=== PATIENT | female | born 2000 | race Caucasian/White ===

== ENCOUNTER 2024-06-25 22:21 | Emergency (ER) | payer OTHER, SELFPAY ==
--- OUTSIDE RECORDS SUMMARY | 2024-06-25 22:24 | XMS_ITS | Continuity of Care Document ---
Author Organization [facility] Address [address] [place] [address] Phone Care Team Providers Care Overcoiler Name Role Phone Mohan Valadez MD Unavailable Unavailable Procedures Procedure Date Patient Optical Charge Offic/outpt E&m Estab Mod-hi 2 08 Offic/outpt E&m New Minor 10mi 08 Advance Directives Directive Yes / No Effective Date File Name No Information Encounters Encounter Description Practice Location Reason(s) For Visit Diagnoses Date Provider Providers Copied on Encounter [facility] , [address], [place], [id number], [place] tel:[phone] [facility] No Information Rory Preston. [address] [facility], [address], [place], [place], [id number], [place]. tel:[phone] [facility] , [address], [place], [id number], [place] tel:[phone] [facility] No Information No Information Offic/outpt E&m Estab Mod-hi 2 [facility] , [address], [place], [id number], [place] tel:[phone] [facility] No Information No Information Offic/outpt E&m New Minor 10mi [facility] , [address], [place], [id number], [place] tel:[phone] [facility] No Information No Information Referring Provider: Nina Moore MD, [address], [place], [address] . tel:[phone] Family History Family Member Type Diagnosis Age At Onset No Information Payers Payer name Insurance type Covered democrat ID Authoriza tion(s) No Information Social History Type Description Quantity Date Captured Comments Sex Female Smoking Status No Information Chief Complaint And Reason For Visit No Information Reason For Referral Reason For Referral No Information History Of Present Illness Encounter Date Complaint History Of Prese nt Illness No Information Functional Status Date Functional Assessmen t No Information Instructions Date Instruction Additional Infor mation No Information Assessments Type Assessment Date No Information Patient Care Teams Name Effective Dates (start - stop) Status Members No Information
[2024-06-25 22:26] VITALS: BP 122/74; PULSE 90; RESP 16; TEMP 36.7; O2SAT 98; BMI 19.1
--- NOTE | 2024-06-25 22:37 | ED.GENADULT ---
HPI - General Adult General Time Seen by Provider: 22:38 <Kallie Cooper MD - Last Filed: 06/26/24 18:46> Date Seen: 06/25/24 <Kallie Cooper MD - Last Filed: 06/26/24 18:46> Chief complaint: Unspecified Complaint, Adult <Kallie Cooper MD - Last Filed: 06/26/24 18:46> Stated complaint: poss carbon monoxide poisoning <Kallie Cooper MD - Last Filed: 06/26/24 18:46> Time Seen by Provider: 06/25/24 22:23 <Kallie Cooper MD - Last Filed: 06/26/24 18:46> Source: patient and RN notes reviewed <Kallie Cooper MD - Last Filed: 06/26/24 18:46> Mode of arrival: ambulatory <Kallie Cooper MD - Last Filed: 06/26/24 18:46> Limitations: no limitations <Kallie Cooper MD - Last Filed: 06/26/24 18:46> History of Present Illness HPI narrative: This 23yo female is coming into the ED with concerns of possible carbon monoxide exposure from an exhaust leak in the car. She was running errands with her boyfriend when all of this started to happen, from 7-9p tonight, when she started to feel hot, like a hot flash, felt trembly and shaky, hands were visibly shaking when trying to drink her beverage. Her ears both started ringing and her hearing was going in and out. She felt dizzy, confused for about 5 minutes, was stuttering attempting to talk, had a headache and chest pressure with this. She had some significant nasal congestion last week without fever, had post nasal drainage with secondary cough but no fever. Has noted some right ear pain for about 2 weeks intermittently. She is sexually active, last menstrual period was about 2 weeks ago; there is a chance for . She felt like it was just maybe her anxiety but did consider the exhaust, she then her rule down the window and started to breathe a air out the window. She does admit that they watched TV your program on the phone for 1/2 hour and also did smoke marijuana. Neither of them smoke cigarettes. She does have secondhand smoke exposure but not within the car while they were driving. She does feel better from all of these symptoms but her mom advised her to come in for evaluation. Her boyfriend is with her, he does admit that he had similar symptoms in the car but did not tell nursing staff this as he wanted to stay with his girlfriend. <Kallie Cooper MD - Last Filed: 06/26/24 18:46> Related Data Home medications: Home Medications ?Medication ?Instructions ?Recorded ?Confirmed No Known Home Medications 06/25/24 06/25/24 <Kallie Cooper MD - Last Filed: 06/26/24 18:46> Allergies/adverse reactions: Allergies Allergy/AdvReac Type Severity Reaction Status Date / Time amoxicillin Allergy hives Verified 06/25/24 22:32 [email or web address] (From Omnicef) AdvReac Vomiting Verified 06/25/24 22:32 <Kallie Cooper MD - Last Filed: 06/26/24 18:46> Review of Systems Status of ROS: Reports: 6 or more systems reviewed and unremarkable except as noted in History and below <Kallie Cooper MD - Last Filed: 06/26/24 18:46> [facility] Social History: Social History Smoking Status: Never smoker Do you use any of these nicotine containing products: Vaping Products How often do you have a drink containing alcohol: never AUDIT-C Alcohol total score: 0 Non-prescribed substance use: marijuana (any form) <Kallie Cooper MD - Last Filed: 06/26/24 18:46> Exam Const: Vital Signs, click to edit/add: Vital Signs - 24 hr 06/25/24 22:26 06/25/24 23:10 06/25/24 23:51 Temperature 98.0 F Pulse Rate 81 Pulse Rate [Left P ulse Oximeter] 90 Respiratory Rate 16 17 Blood Pressure 113/68 Blood Pressure [Ri ght Upper Arm] 122/74 Pulse Oximetry 98 100 Oxygen Delivery Me thod Room Air Non Rebreather Mas k Non Rebreather Mas k Oxygen Flow Rate 10 10 06/25/24 23:52 06/26/24 00:00 06/26/24 00:01 Temperature Pulse Rate 92 82 88 Pulse Rate [Left P ulse Oximeter] Respiratory Rate 25 H 20 20 Blood Pressure 117/75 Blood Pressure [Ri ght Upper Arm] Pulse Oximetry 100 100 100 Oxygen Delivery Me thod Non Rebreather Mas k Non Rebreather Mas k Non Rebreather Mas k Oxygen Flow Rate 10 10 06/26/24 00:01 06/26/24 00:01 06/26/24 00:15 Temperature Pulse Rate 88 88 90 Pulse Rate [Left P ulse Oximeter] Respiratory Rate 20 20 Blood Pressure 117/75 117/75 Blood Pressure [Ri ght Upper Arm] Pulse Oximetry 100 100 100 Oxygen Delivery Me thod Non Rebreather Mas k Non Rebreather Mas k Oxygen Flow Rate 10 06/26/24 00:30 06/26/24 00:32 06/26/24 00:45 Temperature Pulse Rate 78 79 Pulse Rate [Left P ulse Oximeter] Respiratory Rate 20 20 20 Blood Pressure 104/57 L Blood Pressure [Ri ght Upper Arm] Pulse Oximetry 100 100 Oxygen Delivery Me thod Non Rebreather Mas k Oxygen Flow Rate 10 06/26/24 01:00 06/26/24 01:01 06/26/24 01:01 Temperature Pulse Rate 80 77 77 Pulse Rate [Left P ulse Oximeter] Respiratory Rate 19 19 Blood Pressure 113/65 113/65 Blood Pressure [Ri ght Upper Arm] Pulse Oximetry 100 100 100 Oxygen Delivery Me thod Non Rebreather Mas k Non Rebreather Mas k Oxygen Flow Rate 10 06/26/24 01:01 06/26/24 01:15 06/26/24 01:30 Temperature Pulse Rate 77 71 73 Pulse Rate [Left P ulse Oximeter] Respiratory Rate 19 14 18 Blood Pressure 113/65 Blood Pressure [Ri ght Upper Arm] Pulse Oximetry 100 100 100 Oxygen Delivery Me thod Non Rebreather Mas k Oxygen Flow Rate 10 06/26/24 01:32 06/26/24 01:45 06/26/24 02:00 Temperature Pulse Rate 72 56 L 73 Pulse Rate [Left P ulse Oximeter] Respiratory Rate 12 18 17 Blood Pressure 103/59 L Blood Pressure [Ri ght Upper Arm] Pulse Oximetry 100 99 99 Oxygen Delivery Me thod Non Rebreather Mas k Oxygen Flow Rate 06/26/24 02:02 06/26/24 02:15 06/26/24 02:30 Temperature Pulse Rate 70 66 64 Pulse Rate [Left P ulse Oximeter] Respiratory Rate 20 20 15 Blood Pressure 99/50 L Blood Pressure [Ri ght Upper Arm] Pulse Oximetry 99 100 100 Oxygen Delivery Me thod Non Rebreather Mas k Oxygen Flow Rate 06/26/24 02:32 06/26/24 02:45 06/26/24 03:00 Temperature Pulse Rate 78 76 53 L Pulse Rate [Left P ulse Oximeter] Respiratory Rate 19 18 Blood Pressure 107/58 L Blood Pressure [Ri ght Upper Arm] Pulse Oximetry 100 100 99 Oxygen Delivery Me thod Non Rebreather Mas k Non Rebreather Mas k Oxygen Flow Rate 10 06/26/24 03:02 06/26/24 03:15 06/26/24 03:30 Temperature Pulse Rate 51 L 51 L 51 L Pulse Rate [Left P ulse Oximeter] Respiratory Rate 19 19 Blood Pressure 95/49 L Blood Pressure [Ri ght Upper Arm] Pulse Oximetry 100 99 100 Oxygen Delivery Me thod Oxygen Flow Rate 06/26/24 03:32 06/26/24 03:45 06/26/24 04:00 Temperature Pulse Rate 95 61 69 Pulse Rate [Left P ulse Oximeter] Respiratory Rate 14 18 20 Blood Pressure 92/73 Blood Pressure [Ri ght Upper Arm] Pulse Oximetry 100 100 100 Oxygen Delivery Me thod Non Rebreather Mas k Oxygen Flow Rate 06/26/24 04:02 06/26/24 04:15 06/26/24 04:30 Temperature Pulse Rate 61 52 L 53 L Pulse Rate [Left P ulse Oximeter] Respiratory Rate 17 17 18 Blood Pressure 93/55 L Blood Pressure [Ri ght Upper Arm] Pulse Oximetry 100 100 100 Oxygen Delivery Me thod Non Rebreather Mas k Oxygen Flow Rate 06/26/24 04:32 06/26/24 04:45 06/26/24 05:00 Temperature Pulse Rate 56 L 53 L 54 L Pulse Rate [Left P ulse Oximeter] Respiratory Rate 19 18 19 Blood Pressure 96/41 L Blood Pressure [Ri ght Upper Arm] Pulse Oximetry 100 100 100 Oxygen Delivery Me thod Oxygen Flow Rate 06/26/24 05:02 06/26/24 05:15 Temperature Pulse Rate 57 L 56 L Pulse Rate [Left P ulse Oximeter] Respiratory Rate 19 17 Blood Pressure 95/52 L Blood Pressure [Ri ght Upper Arm] Pulse Oximetry 100 100 Oxygen Delivery Me thod Non Rebreather Mas k Oxygen Flow Rate 10 This 23-year-old female is alert, interactive, no apparent distress. She is ambulatory into the ED of her own accord. She is very pleasant, tracking normally, speech is normal in cyst think. Pupils equal round reactive, sclera clear, TMs normal, no evidence of infection. She has no pre or postauricular adenopathy or masses. Oropharynx normal. Neck is supple, no adenopathy, no thyromegaly masses or nodules. Lungs are clear, good air entry, no wheezing or crackles, no tachypnea. Abdomen is soft, slender, nondistended, no masses. Strength is 5/5 and symmetric, no tremors or dysmetria at this time. Her gait was normal. <Kallie Cooper MD - Last Filed: 06/26/24 18:46> Vital Signs, click to edit/add: Vital Signs - 24 hr 06/25/24 22:26 06/25/24 23:10 06/25/24 23:51 Temperature 98.0 F Pulse Rate 81 Pulse Rate [Left P ulse Oximeter] 90 Respiratory Rate 16 17 Blood Pressure 113/68 Blood Pressure [Ri ght Upper Arm] 122/74 Pulse Oximetry 98 100 Oxygen Delivery Me thod Room Air Non Rebreather Mas k Non Rebreather Mas k Oxygen Flow Rate 10 06/25/24 23:52 06/26/24 00:00 06/26/24 00:01 Temperature Pulse Rate 92 82 88 Pulse Rate [Left P ulse Oximeter] Respiratory Rate 25 H 20 20 Blood Pressure 117/75 Blood Pressure [Ri ght Upper Arm] Pulse Oximetry 100 100 100 Oxygen Delivery Me thod Non Rebreather Mas k Non Rebreather Mas k Non Rebreather Mas k Oxygen Flow Rate 10 10 10 06/26/24 00:01 06/26/24 00:01 06/26/24 00:15 Temperature Pulse Rate 88 88 90 Pulse Rate [Left P ulse Oximeter] Respiratory Rate 20 20 Blood Pressure 117/75 117/75 Blood Pressure [Ri ght Upper Arm] Pulse Oximetry 100 100 100 Oxygen Delivery Me thod Non Rebreather Mas k Non Rebreather Mas k Oxygen Flow Rate 10 06/26/24 00:30 06/26/24 00:32 06/26/24 00:45 Temperature Pulse Rate 78 79 Pulse Rate [Left P ulse Oximeter] Respiratory Rate 20 20 20 Blood Pressure 104/57 L Blood Pressure [Ri ght Upper Arm] Pulse Oximetry 100 100 Oxygen Delivery Me thod Non Rebreather Mas k Oxygen Flow Rate 06/26/24 01:00 06/26/24 01:01 06/26/24 01:01 Temperature Pulse Rate 80 77 77 Pulse Rate [Left P ulse Oximeter] Respiratory Rate 19 19 Blood Pressure 113/65 113/65 Blood Pressure [Ri ght Upper Arm] Pulse Oximetry 100 100 100 Oxygen Delivery Me thod Non Rebreather Mas k Non Rebreather Mas k Oxygen Flow Rate 10 06/26/24 01:01 06/26/24 01:15 06/26/24 01:30 Temperature Pulse Rate 77 71 73 Pulse Rate [Left P ulse Oximeter] Respiratory Rate 19 14 18 Blood Pressure 113/65 Blood Pressure [Ri ght Upper Arm] Pulse Oximetry 100 100 100 Oxygen Delivery Me thod Non Rebreather Mas k Oxygen Flow Rate 06/26/24 01:32 06/26/24 01:45 06/26/24 02:00 Temperature Pulse Rate 72 56 L 73 Pulse Rate [Left P ulse Oximeter] Respiratory Rate 12 18 17 Blood Pressure 103/59 L Blood Pressure [Ri ght Upper Arm] Pulse Oximetry 100 99 99 Oxygen Delivery Me thod Non Rebreather Mas k Oxygen Flow Rate 06/26/24 02:02 06/26/24 02:15 06/26/24 02:30 Temperature Pulse Rate 70 66 64 Pulse Rate [Left P ulse Oximeter] Respiratory Rate 20 20 15 Blood Pressure 99/50 L Blood Pressure [Ri ght Upper Arm] Pulse Oximetry 99 100 100 Oxygen Delivery Me thod Non Rebreather Mas k Oxygen Flow Rate 06/26/24 02:32 06/26/24 02:45 06/26/24 03:00 Temperature Pulse Rate 78 76 53 L Pulse Rate [Left P ulse Oximeter] Respiratory Rate 19 18 Blood Pressure 107/58 L Blood Pressure [Ri ght Upper Arm] Pulse Oximetry 100 100 99 Oxygen Delivery Me thod Non Rebreather Mas k Non Rebreather Mas k Oxygen Flow Rate 10 10 06/26/24 03:02 06/26/24 03:15 06/26/24 03:30 Temperature Pulse Rate 51 L 51 L 51 L Pulse Rate [Left P ulse Oximeter] Respiratory Rate 19 19 Blood Pressure 95/49 L Blood Pressure [Ri ght Upper Arm] Pulse Oximetry 100 99 100 Oxygen Delivery Me thod Oxygen Flow Rate 06/26/24 03:32 06/26/24 03:45 06/26/24 04:00 Temperature Pulse Rate 95 61 69 Pulse Rate [Left P ulse Oximeter] Respiratory Rate 14 18 20 Blood Pressure 92/73 Blood Pressure [Ri ght Upper Arm] Pulse Oximetry 100 100 100 Oxygen Delivery Me thod Non Rebreather Mas k Oxygen Flow Rate 10 06/26/24 04:02 06/26/24 04:15 06/26/24 04:30 Temperature Pulse Rate 61 52 L 53 L Pulse Rate [Left P ulse Oximeter] Respiratory Rate 17 17 18 Blood Pressure 93/55 L Blood Pressure [Ri ght Upper Arm] Pulse Oximetry 100 100 100 Oxygen Delivery Me thod Non Rebreather Mas k Oxygen Flow Rate 10 06/26/24 04:32 06/26/24 04:45 06/26/24 05:00 Temperature Pulse Rate 56 L 53 L 54 L Pulse Rate [Left P ulse Oximeter] Respiratory Rate 19 18 19 Blood Pressure 96/41 L Blood Pressure [Ri ght Upper Arm] Pulse Oximetry 100 100 100 Oxygen Delivery Me thod Oxygen Flow Rate 06/26/24 05:02 06/26/24 05:15 Temperature Pulse Rate 57 L 56 L Pulse Rate [Left P ulse Oximeter] Respiratory Rate 19 17 Blood Pressure 95/52 L Blood Pressure [Ri ght Upper Arm] Pulse Oximetry 100 100 Oxygen Delivery Me thod Non Rebreather Mas k Oxygen Flow Rate 10 <Jameel Reddy MD - Last Filed: 06/26/24 05:28> Documenting provider has reviewed patient's vital signs: yes <Kallie Cooper MD - Last Filed: 06/26/24 18:46> Course Course ED Course: Reviewed with patient that we will get labs, we will check for carbon monoxide poisoning, that will come back pretty quickly. If elevated, will treat with oxygen and do appropriate monitoring and testing for carbon monoxide poisoning. I am doing baseline labs with comprehensive metabolic panel, CBC, will get point of care troponin given her chest symptoms as well as a test. I am also doing a venous blood gas. <Kallie Cooper MD - Last Filed: 06/26/24 18:46> Reevaluation(s) Time of Reevaluation #1: 23:07 <Kallie Cooper MD - Last Filed: 06/26/24 18:46> Reevaluation #1: Her carboxyhemoglobin level has come back at 24.2%. This is obviously quite elevated. She is put on 10 L non-rebreather oxygen. Have her on pulse oximetry and cardiac monitoring. Will obtain EKG. Need to ensure no arrhythmia. Her troponin is normal. She is still hemodynamically and neurologically intact. Her venous blood gas is normal. Awaiting other labs at this point. If patient does test positive for , will need to talk to [facility]. <Kallie Cooper MD - Last Filed: 06/26/24 18:46> Reevaluation #2: Signed out to Dr. Reddy at shift change-midnight. Dr. Ordoñez did recheck the patient. She was alert and oriented, no symptoms. Discussed plan of care with the patient and her boyfriend they are agreeable. Plan will be to recheck troponin at 4:00 a.m. and keep them both on 100% oxygen through non-rebreather for about 6 hours (anticipate they will finish oxygen therapy at about 5:00 a.m.). They are agreeable. <Jameel Reddy MD - Last Filed: 06/26/24 05:28> Reevaluation #3: Repeat troponin undetectable. Patient otherwise asymptomatic. Continuing oxygen therapy. Will continue until 6 hours of oxygen via non-rebreather. At that point as per sign-out by Dr. Gonzáles (after her discussion with the hyperbaric team at [facility]) patient is safe for discharge home. <Jameel Reddy MD - Last Filed: 06/26/24 05:28> Additional Reevaluation(s): Recheck-has completed 6 hours of oxygen therapy. Remains asymptomatic. Feels comfortable plan for discharge. <Jameel Reddy MD - Last Filed: 06/26/24 05:28> Consultations Consultation #1: Have spoken to medical cook [address] Simeon from [facility]. He states that they are going away from a levels as levels do not necessarily correlate with symptoms. They would do 6 hours of non-rebreather oxygen. If patient had syncope, ongoing cardiac symptoms, persistent neurologic deficits, consideration for hyperbaric chamber would be made and we should contact them back. He would repeat a troponin. <Kallie Cooper MD - Last Filed: 06/26/24 18:46> Time: 00:12 <Kallie Cooper MD - Last Filed: 06/26/24 18:46> Vital Signs Vital signs: Initial Vital Signs Temperature 98.0 F 06/25/24 22:26 Temperature Source Temporal Artery Scan 06/25/24 22:26 Pulse Rate 90 06/25/24 22:26 Respiratory Rate 16 06/25/24 22:26 Blood Pressure 122/74 06/25/24 22:26 Blood Pressure Mean 90 06/25/24 22:26 Blood Pressure Position Sitting 06/25/24 22:26 Pulse Oximetry 98 06/25/24 22:26 Oxygen Delivery Method Room Air 06/25/24 22:26 Vital Signs Temperature 98.0 F 06/25/24 22:26 Pulse Rate 90 06/25/24 22:26 Respiratory Rate 16 06/25/24 22:26 Blood Pressure 122/74 06/25/24 22:26 Pulse Oximetry 98 06/25/24 22:26 Oxygen Delivery Method Room Air 06/25/24 22:26 Temperature 98.0 F 06/25/24 22:26 Pulse Rate 56 L 06/26/24 05:15 Respiratory Rate 17 06/26/24 05:15 Blood Pressure 95/52 L 06/26/24 05:02 Pulse Oximetry 100 06/26/24 05:15 Oxygen Delivery Method Non Rebreather Mask 06/26/24 05:02 Oxygen Flow Rate 10 06/26/24 05:02 <Kallie Cooper MD - Last Filed: 06/26/24 18:46> Initial Vital Signs Temperature 98.0 F 06/25/24 22:26 Temperature Source Temporal Artery Scan 06/25/24 22:26 Pulse Rate 90 06/25/24 22:26 Respiratory Rate 16 06/25/24 22:26 Blood Pressure 122/74 06/25/24 22:26 Blood Pressure Mean 90 06/25/24 22:26 Blood Pressure Position Sitting 06/25/24 22:26 Pulse Oximetry 98 06/25/24 22:26 Oxygen Delivery Method Room Air 06/25/24 22:26 Vital Signs Temperature 98.0 F 06/25/24 22:26 Pulse Rate 90 06/25/24 22:26 Respiratory Rate 16 06/25/24 22:26 Blood Pressure 122/74 06/25/24 22:26 Pulse Oximetry 98 06/25/24 22:26 Oxygen Delivery Method Room Air 06/25/24 22:26 Temperature 98.0 F 06/25/24 22:26 Pulse Rate 56 L 06/26/24 05:15 Respiratory Rate 17 06/26/24 05:15 Blood Pressure 95/52 L 06/26/24 05:02 Pulse Oximetry 100 06/26/24 05:15 Oxygen Delivery Method Non Rebreather Mask 06/26/24 05:02 Oxygen Flow Rate 10 06/26/24 05:02 <Jameel Reddy MD - Last Filed: 06/26/24 05:28> Medical Decision Making Lab Data Lab results reviewed: Yes I reviewed the patient's lab results <Kallie Cooper MD - Last Filed: 06/26/24 18:46> Lab results narrative: Venous pH, anion gap normal, troponin normal. Patient is not . <Kallie Cooper MD - Last Filed: 06/26/24 18:46> Labs: Lab Results 06/25/24 06/25/24 06/25/24 Range/Units 22:38 22:50 23:00 WBC 9.69 (4.50-11.00) K/uL RBC 4.39 (4.00-5.20) m/uL Hgb 12.5 (12.0-16.0) gm/dL Hct 38.0 (33.0-51.0) % MCV 87 (80-100) fL MCH 29 (26-34) pg MCHC 33 (32-36) gm/dL RDW Coeff of Tiffany 12.1 (11.5-15.5) % Plt Count 275 (140-440) K/uL Neut % (Auto) 69.0 (42.0-72.0) % Lymph % (Auto) 20.0 (20-44) % [place] % (Auto) 8.5 (0.0-11.0) % Eos % (Auto) 1.4 (0.0-7.0) % Baso % (Auto) 0.4 (0.0-3.0) % Neut # (Auto) 6.68 (1.7-7.0) K/uL Lymph # (Auto) 1.94 (0.90-2.90) K/uL [place] # (Auto) 0.80 (0.00-0.90) K/UL Eos # (Auto) 0.14 (0.00-0.50) K/uL Baso # (Auto) 0.04 (0.00-0.30) K/uL Abs Immat Gran (auto) 0.07 (0.00-0.30) K/uL Imm/Tot Granulo (auto) 0.7 % VBG pH 7.392 (7.32-7.43) VBG pCO2 44 (40-50) mmHG VBG pO2 < 30.1 (25-47) mmHG VBG HCO3 27 (21-28) mmol/L Carboxyhemoglobin 24.2 H* (0.0-5.0) % Sodium 137 (135-149) mmol/L Potassium 3.9 (3.6-5.1) mmol/L Chloride 104 (96-114) mmol/L Carbon Dioxide 24 (20-32) mmol/L Anion Gap 9 (7-15) mEq/L BUN 16 (5-24) mg/dL Creatinine 0.6 (0.5-1.5) mg/dL Estimated Creat Clear 116.90 Estimated GFR 130 ml/min Glucose 101 (60-115) mg/dL Calcium 9.5 (8.4-10.6) mg/dL Total Bilirubin 0.4 (0.1-1.5) mg/dL AST 21 (12-35) U/L ALT 13 (4-35) U/L Alkaline Phosphatase 48 (40-150) U/L Total Protein 7.7 (6.0-8.3) g/dL Albumin 4.7 (3.3-5.0) g/dL HCG, Qual Negative (Negative) Lab Acknowledgement Test Added POC Troponin I 0.00 L (0.01-0.04) ng/ml 06/26/24 Range/Units 04:00 WBC (4.50-11.00) K/uL RBC (4.00-5.20) m/uL Hgb (12.0-16.0) gm/dL Hct (33.0-51.0) % MCV (80-100) fL MCH (26-34) pg MCHC (32-36) gm/dL RDW Coeff of Tiffany (11.5-15.5) % Plt Count (140-440) K/uL Neut % (Auto) (42.0-72.0) % Lymph % (Auto) (20-44) % [place] % (Auto) (0.0-11.0) % Eos % (Auto) (0.0-7.0) % Baso % (Auto) (0.0-3.0) % Neut # (Auto) (1.7-7.0) K/uL Lymph # (Auto) (0.90-2.90) K/uL [place] # (Auto) (0.00-0.90) K/UL Eos # (Auto) (0.00-0.50) K/uL Baso # (Auto) (0.00-0.30) K/uL Abs Immat Gran (auto) (0.00-0.30) K/uL Imm/Tot Granulo (auto) % VBG pH (7.32-7.43) VBG pCO2 (40-50) mmHG VBG pO2 (25-47) mmHG VBG HCO3 (21-28) mmol/L Carboxyhemoglobin (0.0-5.0) % Sodium (135-149) mmol/L Potassium (3.6-5.1) mmol/L Chloride (96-114) mmol/L Carbon Dioxide (20-32) mmol/L Anion Gap (7-15) mEq/L BUN (5-24) mg/dL Creatinine (0.5-1.5) mg/dL Estimated Creat Clear Estimated GFR ml/min Glucose (60-115) mg/dL Calcium (8.4-10.6) mg/dL Total Bilirubin (0.1-1.5) mg/dL AST (12-35) U/L ALT (4-35) U/L Alkaline Phosphatase (40-150) U/L Total Protein (6.0-8.3) g/dL Albumin (3.3-5.0) g/dL HCG, Qual (Negative) Lab Acknowledgement POC Troponin I 0.00 L (0.01-0.04) ng/ml <Kallie Cooper MD - Last Filed: 06/26/24 18:46> Lab Results 06/25/24 06/25/24 06/25/24 Range/Units 22:38 22:50 23:00 WBC 9.69 (4.50-11.00) K/uL RBC 4.39 (4.00-5.20) m/uL Hgb 12.5 (12.0-16.0) gm/dL Hct 38.0 (33.0-51.0) % MCV 87 (80-100) fL MCH 29 (26-34) pg MCHC 33 (32-36) gm/dL RDW Coeff of Tiffany 12.1 (11.5-15.5) % Plt Count 275 (140-440) K/uL Neut % (Auto) 69.0 (42.0-72.0) % Lymph % (Auto) 20.0 (20-44) % [place] % (Auto) 8.5 (0.0-11.0) % Eos % (Auto) 1.4 (0.0-7.0) % Baso % (Auto) 0.4 (0.0-3.0) % Neut # (Auto) 6.68 (1.7-7.0) K/uL Lymph # (Auto) 1.94 (0.90-2.90) K/uL [place] # (Auto) 0.80 (0.00-0.90) K/UL Eos # (Auto) 0.14 (0.00-0.50) K/uL Baso # (Auto) 0.04 (0.00-0.30) K/uL Abs Immat Gran (auto) 0.07 (0.00-0.30) K/uL Imm/Tot Granulo (auto) 0.7 % VBG pH 7.392 (7.32-7.43) VBG pCO2 44 (40-50) mmHG VBG pO2 < 30.1 (25-47) mmHG VBG HCO3 27 (21-28) mmol/L Carboxyhemoglobin 24.2 H* (0.0-5.0) % Sodium 137 (135-149) mmol/L Potassium 3.9 (3.6-5.1) mmol/L Chloride 104 (96-114) mmol/L Carbon Dioxide 24 (20-32) mmol/L Anion Gap 9 (7-15) mEq/L BUN 16 (5-24) mg/dL Creatinine 0.6 (0.5-1.5) mg/dL Estimated Creat Clear 116.90 Estimated GFR 130 ml/min Glucose 101 (60-115) mg/dL Calcium 9.5 (8.4-10.6) mg/dL Total Bilirubin 0.4 (0.1-1.5) mg/dL AST 21 (12-35) U/L ALT 13 (4-35) U/L Alkaline Phosphatase 48 (40-150) U/L Total Protein 7.7 (6.0-8.3) g/dL Albumin 4.7 (3.3-5.0) g/dL HCG, Qual Negative (Negative) Lab Acknowledgement Test Added POC Troponin I 0.00 L (0.01-0.04) ng/ml 06/26/24 Range/Units 04:00 WBC (4.50-11.00) K/uL RBC (4.00-5.20) m/uL Hgb (12.0-16.0) gm/dL Hct (33.0-51.0) % MCV (80-100) fL MCH (26-34) pg MCHC (32-36) gm/dL RDW Coeff of Tiffany (11.5-15.5) % Plt Count (140-440) K/uL Neut % (Auto) (42.0-72.0) % Lymph % (Auto) (20-44) % [place] % (Auto) (0.0-11.0) % Eos % (Auto) (0.0-7.0) % Baso % (Auto) (0.0-3.0) % Neut # (Auto) (1.7-7.0) K/uL Lymph # (Auto) (0.90-2.90) K/uL [place] # (Auto) (0.00-0.90) K/UL Eos # (Auto) (0.00-0.50) K/uL Baso # (Auto) (0.00-0.30) K/uL Abs Immat Gran (auto) (0.00-0.30) K/uL Imm/Tot Granulo (auto) % VBG pH (7.32-7.43) VBG pCO2 (40-50) mmHG VBG pO2 (25-47) mmHG VBG HCO3 (21-28) mmol/L Carboxyhemoglobin (0.0-5.0) % Sodium (135-149) mmol/L Potassium (3.6-5.1) mmol/L Chloride (96-114) mmol/L Carbon Dioxide (20-32) mmol/L Anion Gap (7-15) mEq/L BUN (5-24) mg/dL Creatinine (0.5-1.5) mg/dL Estimated Creat Clear Estimated GFR ml/min Glucose (60-115) mg/dL Calcium (8.4-10.6) mg/dL Total Bilirubin (0.1-1.5) mg/dL AST (12-35) U/L ALT (4-35) U/L Alkaline Phosphatase (40-150) U/L Total Protein (6.0-8.3) g/dL Albumin (3.3-5.0) g/dL HCG, Qual (Negative) Lab Acknowledgement POC Troponin I 0.00 L (0.01-0.04) ng/ml <Jameel Reddy MD - Last Filed: 06/26/24 05:28> ECG Data Attestation: I personally reviewed and interpreted this ECG as follows: (Normal sinus rhythm with sinus arrhythmia, 82 beats per minute. No ischemic change.) <Kallie Cooper MD - Last Filed: 06/26/24 18:46> Prior ECG tracings: not available for review <Kallie Cooper MD - Last Filed: 06/26/24 18:46> Discharge Plan Discharge Clinical Impression: Accidental poisoning by carbon monoxide <Kallie Coopre MD - Last Filed: 06/26/24 18:46> Patient Disposition: Home, Self-Care <Kallie Cooper MD - Last Filed: 06/26/24 18:46> Condition: Stable <Kallie Cooper MD - Last Filed: 06/26/24 18:46> Instructions: Carbon Monoxide Poisoning (ED) <Kallie Cooper MD - Last Filed: 06/26/24 18:46> Additional Instructions: Need to stay out of the vehicle until the exhaust system is fixed. If you have any ongoing concerns with headaches, any concerns for neurologic changes post exposure, please follow up in clinic. May need to be referred to Neurology. Recommend no use of any inhalational substances. <Kallie Cooper MD - Last Filed: 06/26/24 18:46> Prescriptions: No Action No Known Home Medications <Kallie Cooper MD - Last Filed: 06/26/24 18:46> Follow Up/Referrals: Dulce Humphreys, NADIRA [Primary Care Provider] - <Kallie Cooper MD - Last Filed: 06/26/24 18:46> Stand Alone Forms: [employer] Info Instructions <Kallie Cooper MD - Last Filed: 06/26/24 18:46>
[2024-06-25 22:56] LABS: HCO3 VBG 27 mmol/L (21-28); PCO2 VBG 44 mmHG (40-50); PO2 VBG < 30.1 mmHG (25-47); pH VBG 7.392 (7.32-7.43)
[2024-06-25 23:00] LABS: Basophils Absolute Auto 0.04 K/uL (0.00-0.30); Basophils Percent Auto 0.4 % (0.0-3.0); Eosinophils Absolute Auto 0.14 K/uL (0.00-0.50); Eosinophils Percent Auto 1.4 % (0.0-7.0); Hemoglobin* 12.5 gm/dL (12.0-16.0); Immature Granulocytes Abs Auto 0.07 K/uL (0.00-0.30); Immature Granulocytes Pct Auto 0.7 %; Lymphocytes Absolute Auto 1.94 K/uL (0.90-2.90); Mean Corpuscular HGB Conc 33 gm/dL (32-36); Mean Corpuscular Hemoglobin 29 pg (26-34); Mean Corpuscular Volume 87 fL (80-100); Monocytes Percent Auto 8.5 % (0.0-11.0); Neutrophils Absolute Auto 6.68 K/uL (1.7-7.0); Platelet Count* 275 K/uL (140-440); RDW Coefficient of Variation % 12.1 % (11.5-15.5); Red Blood Count 4.39 m/uL (4.00-5.20); White Blood Count* 9.69 K/uL (4.50-11.00)
[2024-06-25 23:01] LABS: Slide Review Reflex No
[2024-06-25 23:03] LABS: Carboxyhemoglobin* 24.2 % (0.0-5.0)
--- OUTSIDE RECORDS SUMMARY | 2024-06-25 23:08 | XMS_ITS | Clinical Summary ---
Author Organization [facility] Address [address] [place] [address] Care Team Providers Care Adult Family Home Program Manager Name Role Phone Unavailable Primary Care Provider Unavailabl e Source Comments Patient records contain information from all sites at [facility]. For routine questions regarding patient records, call [phone] during business hours, M-F 8:00 AM - 5:00 PM Central Time. Record requests for emergency care only can be directed to [phone] at any time.[facility] Allergies Active Allergy Reactions Criticality Noted Date Comments Amoxicillin Rash 07/13/2007 UTI/Bladder infection prone mom states child gets UTI from amoxicillin Cat Dander Other (see comments) 03/10/2017 Stuffy nose Cefdinir Diarrhea 07/13/2007 Fructose Other (see comments) 11/08/2019 Abdominal pain. [place] [facility] Grass Pollen Cough 11/08/2019 House Dust Mite Cough 11/08/2019 Influenza Virus Vaccines Other (see comments) High 09/14/2013 Per mom family member Advised per autopsy never to get [place] Pollen Cough 11/08/2019 Medications albuterol (ACCUNEB) 2.5 mg /3 mL nebulizer solution Inhale 2.5 mg. 8 Active albuterol inhaler Inhale 1-2 puffs. 9 Active betamethasone dipropionate (DIPROLENE) 0.05 % ointment Apply topically. 0 Active FLUoxetine (PROzac) 10 mg capsule Take 10 mg by mouth. 0 Active loratadine (CLARITIN) 10 mg tablet Take 10 mg by mouth. 9 Active norelgestromin-e thinyl estradiol (Xulane) 150-35 mcg/24 hr patchIndications :Pain Pelvic Female,Other Ovarian Cyst Right Side Apply 1 patch each week continuously 12 patch 7 4 Active Active Problems Problem Noted Date Diagnosed Date Other Ovarian Cyst Right Side 12/01/2020 Anxiety 02/03/2018 Asthma Mild Intermittent 09/20/2016 Adjustment Disorder With Depressed Mood 02/16/20 11 Immunizations Immunization Administration Dates Next Due 4vHPV (discontinued) 09/14/2013,05/01/2013,02/16 DTaP (Infanrix, Tripedia) 01/12/2006,,04/25/2002,02/19/2002,01/05 DTaP, Unspecified 03/07/2003,04/25/2002 HepA Pediatric/Adolescent 01/04/2005,10/29/2003 HepB Pediatric/Adolescent 08/13/2002 Hib (PRP-D) (discontinued) 03/07/2003,08/13/2002 Hib-HepB 08/13/2002,02/19/2002,01/05/2002 IPV 01/12/2006,12/20/2002,02/19/2002 ,01/05/2002 MCV4 (Menveo) 09/14/2013 MMR 01/12/2006,12/20/2002 PCV7 (discontinued) 04/25/2002,02/19/2002,2001 Tdap 09/14/2013 LEWIS 01/12/2006,12/20/2002 Social History Tobacco Use Types Packs/Day Years Used Date Smoking Tobacco: Never Smokeless Tobacco: Never Tobacco Cessation:Counseling Given: Not Answered Nutrition Answer Date Recorded Nutrition: EVOO Fat Source Unknown 07/03 Nutrition: Servings of Fruits/Vegetables per Day Not on file 07/03/2020 Dental Answer Date Recorded Dental: Regular Dentist Unknown 07/03/19 21 Comments No Sex and Gender Information Value Date Recorded Sex Assigned at Not on file Legal Sex Female 3:29 PM ASSISTANT SUPERINTENDENT Gender Identity Not on file Sexual Orientation Not on file Last Filed Vital Signs Vital Sign Reading Time Taken Comments Blood Pressure 120/72 06/24/2023 2:25 PM ASSISTANT SUPERINTENDENT Pulse 80 01/05/2021 8:55 AM CDT Temperature - - Respiratory Rate 16 01/05/2021 8:55 AM CDT Oxygen Saturation - - Inhaled Oxygen Concentration - - Weight 50.5 kg (111 lb 5.3 oz) 06/24/2023 2:25 PM ASSISTANT SUPERINTENDENT Height 139 cm (4' 6.72) 03/03/2012 11: 49 AM CDT Vital sign result from Clinical Notes. Body Mass Index - - Plan of Treatment Health Maintenance Due Date Last Done Comments Asthma Action Plan 02/21/2020 Asthma Control Test Questionnaire 02/21/2020 Asthma Management/Exacerbation Questionnaire (AMQ/AEQ) 02/21/2020 Pneumococcal vaccine (0-49 years) (1 of 2 - PCV) 2020 04/25/2002, 02/19/2002, 01/05/2002 DTaP,Tdap,and Td Vaccines (7 - Td or Tdap) 09/15/2023 09/14/2013, 01/12/2006, 03/07/2003, Additional history exists COVID-19 Vaccine ( - season) 2024 Depression Screening (Annual PHQ-2) 05/16/2024 Chlamydia and Gonorrhea Screening 06/24/2024 06/24/2023, 12/04/2021, 02/21/2020 Cervical/Vaginal Cancer Screening 06/24/2026 06/24/2023 Hepatitis B Vaccines Completed 08/13/2002, 08/13/2002, 02/19/2002, Additional history exists IPV Vaccines Completed 01/12/2006, 11/2002, 02/19/2002, Additional history exists HPV Vaccines Completed 09/14/2013, 04/15, 02/16/2013 Meningococcal Vaccine Aged Out 09/14/2013 No daniel chel eligible based on patient's age to complete this topic HIV Screening Completed 12/04/2021 Hepatitis C Screening Completed 12/04/2021 Procedures Procedure Name Priority Date/Time Associated Diagnosis Comments CHLAMYDIA/GONORRHOE AE AMPLIFIED RNA Routine 06/24/2023 2:45 PM ASSISTANT SUPERINTENDENT Wellness Screening THINPREP SCREEN HPV REFLEX Routine 06/24/2023 2:45 PM ASSISTANT SUPERINTENDENT Wellness Screening HCV AB SCRN W/REFLEX TO HCV PCR, S Routine 12/04/2021 12:10 PM CDT Screening For Venereal Disease HIV-1/-2 AG AND AB SCRN, PLASMA Routine 12/04/2021 12:10 PM CDT Screening For Venereal Disease from Last 3 Months or Most Recently Relevant to Health Maintenance Results * ThinPrep Screen HPV Reflex (06/24/2023 2:45 PM ASSISTANT SUPERINTENDENT) 06/28/2023 10:41 AM ASSISTANT SUPERINTENDENT HK[facility] Report electronically signed by JOSE J Nina(ASCP) I verify that I have examined all relevant slides/materials for the specimen(s) and rendered or confirmed the diagnosis. 06/28/2023 10:41 AM ASSISTANT SUPERINTENDENT HK[facility] Gross Description Received specimen in a ThinPrep vial. 06/28/2023 10:41 AM ASSISTANT SUPERINTENDENT HK[facility] Pap Test Source Cervical/Endocervi jodee 06/28/2023 10:41 AM ASSISTANT SUPERINTENDENT HK[facility] Clinical History first pap 06/28/19 24 10:41 AM ASSISTANT SUPERINTENDENT HK[facility] Menstrual Status(LMP, PM, ) unknown 06/28/2023 10:41 AM ASSISTANT SUPERINTENDENT HK[facility] Hormone Therapy/Contracep tives unknown 06/28/2023 10:41 AM ASSISTANT SUPERINTENDENT HK[facility] Interpretation Cervical/Endocervi jodee (ThinPrep): Satisfactory for Evaluation Negative for Intraepithelial Lesion or Malignancy 06/28/2023 10:41 AM ASSISTANT SUPERINTENDENT HKCY Thin Prep Vial (Cervix/Endocerv ix) 06/24/2023 2:45 PM ASSISTANT SUPERINTENDENT 06/27/2023 8:14 AM ASSISTANT SUPERINTENDENT us Gopi Tomlinson M.D. LAB PAP PATHDX ORDERABLES Fi nal Result [facility] [address] [place] [address], [facility] [address] [address] * Chlamydia / Gonorrhoeae Amplified RNA (06/24/2023 2:45 PM ASSISTANT SUPERINTENDENT) Source Swab, Vagina 06/24/2023 11:19 PM ASSISTANT SUPERINTENDENT MKTO Chlamydia trachomatis amplified RNA Negative Negative 06/24/2023 11:19 PM ASSISTANT SUPERINTENDENT MKTO Source Swab, Vagina 06/24/2023 11:19 PM ASSISTANT SUPERINTENDENT MKTO Neisseria gonorrhoeae amplified RNA Negative Negative 06/24/2023 11:19 PM ASSISTANT SUPERINTENDENT MKTO Swab (Vagina) 06/24/2023 2:4 5 PM ASSISTANT SUPERINTENDENT 06/24/2023 6:57 PM ASSISTANT SUPERINTENDENT us Gopi Tomlinson M.D. LAB MICROBIOLOGY - GENERAL O RDERABLES Final Result - [facility] [address] [place] [address], [facility] [address] [facility] [address] [place] [address] * HIV-1/-2 Ag and Ab Scrn, Plasma (12/04/2021 12:10 PM CDT) HIV Ag/Ab Scrn, P Negative Negative 12/06/2021 12:54 PM CDT [facility] Comment: Negative result does not rule out HIV infection. If exposure to HIV infection occurred <14 days ago, contact the laboratory to request addition of HIV-1 RNA detection / quantification test. HIV-1 p24 Ag Scrn, P Negative Negative 12/06/2021 12:54 PM CDT [facility] Comment: Negative result does not rule out HIV infection. If exposure to HIV infection occurred <14 days ago, contact the laboratory to request addition of HIV-1 RNA detection / quantification test. HIV-1 Ab Scrn, P Negative Negative 12/06/2021 12:54 PM CDT [facility] Comment: Negative result does not rule out HIV infection. If exposure to HIV infection occurred <14 days ago, contact the laboratory to request addition of HIV-1 RNA detection / quantification test. HIV-2 Ab Scrn, P Negative Negative 12/06/2021 12:54 PM CDT [facility] Comment: Negative result does not rule out HIV infection. If exposure to HIV infection occurred <14 days ago, contact the laboratory to request addition of HIV-1 RNA detection / quantification test. Blood (Blood, Venous) 12/04/2021 12:10 PM CDT 12/05/2021 8:23 PM CDT us Gopi Tomlinson M.D. LAB MICROBIOLOGY - BLOOD ORD ERABLES Final Result - [facility] [address] [place] [address], [place] [facility] [place] [address] [place] [address] * HCV Ab Scrn w/Reflex to HCV PCR, Serum (12/04/2021 12:10 PM CDT) HCV Ab Screen, S Negative Negative 12/05/2021 12:06 PM CDT [facility] Comment:Wyvnaq-vn-[id number] rat io is <1.00. Blood (Blood, Venous) 12/04/2021 12:10 PM CDT 12/05/2021 8:56 AM CDT us Gopi Tomlinson M.D. LAB MICROBIOLOGY - BLOOD ORD ERABLES Final Result [facility] [address] [place] [address] [facility] Dept. of Laboratory Medicine and Pathology [address] [place] [address] from Last 3 Months or Most Recently Relevant to Health Maintenance Insurance [facility]
--- OUTSIDE RECORDS SUMMARY | 2024-06-25 23:08 | XMS_ITS | Clinical Summary ---
Author Organization [facility] Address [address] [place] [address] Care Team Providers Care Sash Repairer Name Role Phone Clinic, [facility] Primary Care Provider + Allergies No known active allergies Immunizations Name Administration Dates Next Due TDAP (Adacel,Boostrix) 01/13/2024 Social History Tobacco Use Types Packs/Day Years Used Date Smoking Tobacco: Never Assessed Comments No Sex and Gender Information Value Date Recorded Sex Assigned at Not on file Legal Sex Female 1:09 PM CDT Gender Identity Not on file Sexual Orientation Not on file Last Filed Vital Signs Vital Sign Reading Time Taken Comments Blood Pressure 126/75 01/13/2024 1:20 PM CDT Pulse 89 01/13/2024 5:26 PM CDT Temperature 37 C (98.6 F) 01/13/2024 1:20 PM CDT Respiratory Rate 20 01/13/2024 5:26 PM CDT Oxygen Saturation 98% 01/13/2024 5:26 PM CDT Inhaled Oxygen Concentration - - Weight 50.8 kg (112 lb) 01/13/2024 1:20 PM CDT Height - - Body Mass Index - - Plan of Treatment Health Maintenance Due Date Last Done Comments ADVANCE CARE PLANNING 2001 ANNUAL REVIEW OF HM ORDERS 2001 YEARLY PREVENTIVE VISIT 2004 MENINGITIS B IMMUNIZATION (1 of 2 - Standard) 2017 COVID-19 Vaccine (1 - season) 2024 INFLUENZA VACCINE (#1) 2024 PHQ-2 (once per calendar year) 2024 CHLAMYDIA SCREENING 06/24/2024 06/24/2023 PAP 06/24/2026 06/24/2023 DTAP/TDAP/TD IMMUNIZATION (8 - Td or Tdap) 01/12/2034 01/13/2024, 09/14/2013, 01/12/2006, Additional history exists ZOSTER IMMUNIZATION (1 of 2) 10/25/2051 Pneumococcal Vaccine: Pediatrics (0 to 5 Years) and At-Risk Patients (6 to 49 Years) Aged Out 04/25/2002, 02/19/2002, 01/05/2002 No longer eligible based on patient's age to complete this topic HEPATITIS B IMMUNIZATION Completed 003, 08/13/2002, 02/19/2002, Additional history exists HPV IMMUNIZATION Completed 09/14/2013, , 02/16/2013 MENINGITIS IMMUNIZATION Aged Out 09/14/2013 No l onger eligible based on patient's age to complete this topic HEPATITIS C SCREENING Completed 12/04/2021 HIV SCREENING Completed 12/04/2021 Care Teams Sash Repairer Relationship Specialty Start Date End Date Clinic, Mary[facility]ota [address] [place] [address]. [facility] [address] PCP - General 01/13/24
--- OUTSIDE RECORDS SUMMARY | 2024-06-25 23:08 | XMS_ITS | Continuity of Care Document ---
Author Organization [facility] Address [address] [place] [address] Phone Care Team Providers Care Drafting Technician Name Role Phone Mohan Valadez MD Unavailable Unavailable Procedures Procedure Date Patient Optical Charge Offic/outpt E&m Estab Mod-hi 2 08 Offic/outpt E&m New Minor 10mi 08 Advance Directives Directive Yes / No Effective Date File Name No Information Encounters Encounter Description Practice Location Reason(s) For Visit Diagnoses Date Provider Providers Copied on Encounter [facility] , [address], [place], [id number], [place] tel:[phone] [facility] No Information Rory Preston. [address] [facility], [address], [place], [place], [id number], [place]. tel:[phone] [facility] , [address], [place], [id number], [place] tel:[phone] [facility] No Information No Information Offic/outpt E&m Estab Mod-hi 2 [facility] , [address], [place], [id number], [place] tel:[phone] [facility] No Information No Information Offic/outpt E&m New Minor 10mi [facility] , [address], [place], [id number], [place] tel:[phone] [facility] No Information No Information Referring Provider: Nina Moore MD, [address], [place], [address] . tel:[phone] Family History Family Member Type Diagnosis Age At Onset No Information Payers Payer name Insurance type Covered libertarian ID Authoriza tion(s) No Information Social History [...]
--- OUTSIDE RECORDS SUMMARY | 2024-06-25 23:08 | XMS_ITS | Clinical Summary ---
Author Organization [facility] Address [place], [place] [address] Care Team Providers Care Water Supply Technician Name Role Phone Dulce Humphreys CHRIS Primary Care Provider [phone] Allergies Active Allergy Reactions Criticality Noted Date Comments Amoxicillin 07/13/2007 Cat Dander Other - Describe In Comment Field 03/10/2017 Stuffy nose Dust Mites Cough 11/08/2019 Fructose Other - Describe In Comment Field 11/08/2019 Abdominal pain. [place] [facility] [place] Pollen Cough 11/08/2019 Influenza Virus Vaccines Other - Describe In Comment Field High 09/14/2013 Per mom family member Advised per autopsy never to get Cefdinir Diarrhea 07/13/2007 [place] Pollen Cough 11/08/2019 Medications ibuprofen (ADVIL; MOTRIN) 200 mg tablet Take 1 tablet by mouth every 6 hours if needed for Pain. 30 tablet 3 1 Active loratadine (CLARITIN) 10 mg tabletIndication s:Seasonal allergies Take 1 tablet by mouth once daily. 30 tablet 1 9 Active albuterol (PROVENTIL) 0.083 % neb solutionIndicati ons:Moderate persistent asthma with exacerbation Inhale 3 mL (2.5 mg) via a nebulizer every 4 hours if needed for Shortness Of Breath or Wheezing. 60 mL 2 Active betamethasone dipropionate 0.05% (DIPROSONE 0.05% OINTMENT) 0.05 % ointmentIndicati ons:Acute eczema Apply topically to affected area(s) two times daily. For eczema 45 g 5 2 Active albuterol HFA (PRO-AIR; VENTOLIN; PROVENTIL) 90 mcg/actuation inhalerIndicatio ns:Mild intermittent asthma with exacerbation Inhale 1-2 Puffs by mouth every 4 hours if needed for Shortness Of Breath or Wheezing. 1 Each 3 2 Active ethinyl estradiol-norelg estrom (ORTHO EVRA) 150-35 mcg/24 hr patch Apply 1 patch each week continuously 4 Active Active Problems Problem Noted Date Diagnosed Date Cyst of right ovary 11/29/2020 Anxiety 02/03/2018 Depression, major, single episode, moderate 01/15 Mild intermittent asthma 09/20/2016 Adjustment disorder with depressed mood 02/16/20 11 GERD (gastroesophageal reflux disease) 9 Allergic rhinitis, cause unspecified 03/06/2009 Spondylolisthesis at L5-S1 level Overview (03/09/2021): per Caryn back Resolved Problems Problem Noted Date Diagnosed Date Resolved Date Emotional lability 02/03/2018 8 Immunizations Name Administration Dates Next Due DTaP 01/12/2006, 3,04/25/2002,02/19,01/05/2002 HIB PRP-D (ProHIBIT) 03/07/2003,08/13/2002 HIB-HepB (Comvax) 08/13/2002,02/19/2002,01/06/20 02 Hepatitis A (Peds) 01/04/2005,10/29/2003 Hepatitis B (Peds) 08/13/2002 Human Papilloma Virus Vaccine 09/14/2013, 013,02/16/2013 Inactivated Polio Vaccine 01/12/2006,11/2002,02/19/2002,01/05 MENINGOCOCCAL VACCINE 2 VIAL [id number] (MENVEO) 09/14/2013 MMR 01/12/2006,12/20/2002 Pneumococcal conj 7-Valent (Prevnar 7) 2,02/19/2002,01/05/2002 Tdap 09/14/2013 Tdap, Unspecified 03/07/2003,04/25/2002 Varicella Vaccine 01/12/2006,12/20/2002 Family History Medical History Relation Name Comments Good Health Brother Good Health Father Good Health Mother Good Health Sister Celiac disease No Family History Inflammatory bowel disease No Family History Irritable bowel syndrome No Family History Relation Name Status Comments Brother Alive Father Alive Maternal Grandfather Alive Maternal Grandmother Alive Mother Alive Paternal Grandfather Alive Paternal Grandmother Sister Alive Social History Tobacco Use Types Packs/Day Years Used Date Smoking Tobacco: Never Passive Smoke Exposure: Past Smokeless Tobacco: Never Tobacco Cessation:Counseling Given: Not Answered Alcohol Use Standard Drinks/Week Comments Not Currently 0 (1 standard drink = 0.6 oz pur e alcohol) PHQ-2 Answer Date Recorded PHQ-2 TOTAL SCORE 0 08/23/2023 Social Connections Answer Date Recorded Frequency of Communication with Friends and Fami ly Not on file 02/13/2023 Financial Resource Strain Answer Date R ecorded Difficulty of Paying Living Expenses 3 02/12/2022 Difficulty of Paying Living Expenses Not on file 02/12/2022 Food Insecurity Answer Date Recorded Worried About Running Out of Food in the Last Ye ar 1 02/12/2022 Transportation Needs Answer Date Record ed Lack of Transportation (Medical) 1 02/12/2022 Housing Stability Answer Date Recorded Unable to Pay for Housing in the Last Year 1 02/12/2022 Comments No Sex and Gender Information Value Date Recorded Sex Assigned at Not on file Legal Sex Female 5:46 AM DRY ROASTER Gender Identity Not on file Sexual Orientation Not on file Occupation Industry Job Start Date Job End Date [employer] student Not on file Not on file Not on fi le Obstetrics History Para Term AB IAB SAB Ectopic Multiple Livin g Live Births 0 0 0 0 0 0 0 0 0 0 Last Filed Vital Signs Vital Sign Reading Time Taken Comments Blood Pressure 121/73 01/30/2024 9:28 AM CDT Pulse 95 01/30/2024 9:28 AM CDT Temperature 37 C (98.6 F) 01/30/2024 9:28 AM CDT Respiratory Rate 12 09/23/2023 6:17 PM CDT Oxygen Saturation 98% 01/30/2024 9:28 AM CDT Inhaled Oxygen Concentration - - Weight 47.3 kg (104 lb 3.2 oz) 01/30/2024 9:28 A M CDT Height 162.6 cm (5' 4) 03/09/2023 3:02 PM CDT Body Mass Index 17.89 03/09/2023 3:02 PM CDT Plan of Treatment Health Maintenance Due Date Last Done Comments HIV for age 15-65 2016 Chlamydia for age 16-24 2017 Hepatitis C screening for age 18-79 10/25/2019 Pap test for age 21-65 2022 Tetanus booster 09/15/2023 09/14/2013, 02/14, 04/25/2002 BMI (ht and wt on same day) for age 18+ 10/01/2023 09/30/2022, 03/23/2022, 03/09/2021, Additional history exists COVID-19 vaccine series (2023- season) 2024 Depression screening for age 12+ 08/22/2024 08/23/2023, 03/23/2022, 02/12/2022, Additional history exists Pneumococcal series for age 6-49 Aged Out 04/25/2002, 02/19/2002, 01/05/2002 No longer eligible based on patient's age to complete this topic HPV series for age 9-26 Completed 09/15/19 14, 05/01/2013, 02/16/2013 Tdap Completed 09/14/2013, 02/14, 04/25/2002 Care Teams Water Supply Technician Relationship Specialty Start Date End Date Dulce Humphreys NP [address] [place] [id number] PCP - General Family Practice 01/01/14
[2024-06-25 23:15] LABS: Albumin* 4.7 g/dL (3.3-5.0); Chloride* 104 mmol/L (96-114); Potassium* 3.9 mmol/L (3.6-5.1); Sodium* 137 mmol/L (135-149)
[2024-06-25 23:17] LABS: Anion Gap 9 mEq/L (7-15); Bilirubin Total* 0.4 mg/dL (0.1-1.5); Carbon Dioxide* 24 mmol/L (20-32); Creatinine* 0.6 mg/dL (0.5-1.5); Estimated Glomerular Filt Rate 130 ml/min
[2024-06-25 23:18] LABS: Alanine Aminotransferase* 13 U/L (4-35); Alkaline Phosphatase* 48 U/L (40-150); Aspartate Amino Transferase* 21 U/L (12-35); Blood Urea Nitrogen* 16 mg/dL (5-24); Calcium* 9.5 mg/dL (8.4-10.6); Glucose* 101 mg/dL (60-115); Total Protein* 7.7 g/dL (6.0-8.3)
[2024-06-25 23:30] LABS: HCG Qualitative Serum* Negative (Negative)
[2024-06-25 23:51] VITALS: BP 113/68; PULSE 81; RESP 17; O2SAT 100
[2024-06-25 23:52] VITALS: PULSE 92; RESP 25; O2SAT 100
[2024-06-26] VITALS (33 sets, daily range): BP systolic 92–117; BP diastolic 41–75; PULSE 51–95; RESP 12–20; O2SAT 99–100
--- NOTE | 2024-06-26 06:21 | ED.NURSE ---
0400 ed poc trop 0.00
== END 2024-06-26 06:13 | disposition home or self-care (01) ==
PROVIDERS: Family Medicine; Emergency Provider Emergency Medicine; PCP Nurse Practitioner Family
DX: T59.7X1A Toxic effect of carbon dioxide, accidental (unintentional), initial encounter (principal)
CPT/HCPCS: 36415; 80053; 82375; 82803; 84484; 84703; 85025; 93005; 94761; 99284; 99285